=== PATIENT | female | born 1955 | race Caucasian/White ===

== ENCOUNTER → 2019-05-07 | Outpatient (CLI) | payer OTHER, MEDICARE ==
[~2019-05-07] MED LIST: ESTR.05PBW TOP; HORMONE PATCH; HYDCOR2.5B TOP; RXHYDACE PO; SILSUL1TC TOP; SINUS PE DECONG10 MG PO
== END | disposition home or self-care (01) ==
LOC: LAB EV 11:45 → LAB SHORT 11:45 → LAB 11:45
DX: R30.0 Dysuria (principal)
CPT/HCPCS: 87077; 87086; 87186

== ENCOUNTER → 2019-05-17 | Outpatient (CLI) | payer MEDICARE | END | disposition home or self-care (01) | LOC: LAB 13:28 → LAB SHORT 13:28 | DX: R30.0 Dysuria (principal) | CPT/HCPCS: 87077; 87086; 87186 ==

== ENCOUNTER → 2019-09-05 | Outpatient (CLI) | payer MEDICARE | END | disposition home or self-care (01) | LOC: LAB SHORT 09:15 → LAB 09:15 | DX: R35.0 Frequency of micturition (principal); R30.0 Dysuria | CPT/HCPCS: 87077; 87086; 87186 ==

== ENCOUNTER → 2019-10-25 | Outpatient (CLI) | payer MEDICARE | END | disposition home or self-care (01) | LOC: LAB 07:30 → LAB SHORT 07:30 | DX: R30.0 Dysuria (principal); R35.0 Frequency of micturition | CPT/HCPCS: 87077; 87086; 87186 ==

== ENCOUNTER → 2020-03-16 | Outpatient (CLI) | payer MEDICARE, OTHER | END | disposition home or self-care (01) | LOC: PLD 10:50 → LAB SHORT 10:50 | DX: D22.71 Melanocytic nevi of right lower limb, including hip (principal) | CPT/HCPCS: 88305 ==

== ENCOUNTER → 2023-07-07 | Outpatient (CLI) | payer OTHER | LOC: LAB 14:56 → LAB SHORT 14:56 | DX: N39.0 Urinary tract infection, site not specified (principal) | CPT/HCPCS: 87077; 87086; 87186 ==